=== PATIENT | male | born 1995 | race Caucasian/White ===

== ENCOUNTER 2019-10-11 17:19 | Emergency (ER) | payer BC ==
--- NOTE | 2019-10-11 17:35 | UC ---
Lower Extremity/Ankle HPI - HPI Summary HPI Summary: patient fell yesterday injuring the right foot, thinks the left middle toe is broken - History of Current Complaint Stated Complaint: LEFT FOOT INJURY Time Seen by Provider: 10/11/19 17:20 Hx Obtained From: Patient Onset/Duration: Sudden Onset, Lasting Days - 1 Severity Initially: Mild Severity Currently: Mild Aggravating Factor(s): Standing, Ambulation Alleviating Factor(s): Rest Able to Bear Weight: Yes PMH/Surg Hx/FS Hx/Imm Hx Previously Healthy: Yes - Family History Known Family History: Positive: Hypertension Review of Systems All Other Systems Reviewed And Are Negative: Yes Musculoskeletal: Positive: Arthralgia, Edema, Myalgia Physical Exam Triage Information Reviewed: Yes Appearance: Well-Appearing, Well-Nourished, Pain Distress Vital Signs Reviewed: Yes Eye Exam: Normal ENT Exam: Normal Dental Exam: Normal Neck exam: Normal Respiratory Exam: Normal Cardiovascular Exam: Normal Abdominal Exam: Normal Musculoskeletal: Positive: ROM Limited @ - in the 2dn and thridr left toes, Edema @ - mild and bruised Neurological Exam: Normal Psychological Exam: Normal Skin: Positive: Other - small scbbed area on the 2nd left toe Lower Extremity Course/Dx - Course Course Of Treatment: hx obtained, exam performed ,meds reviewed, xray obtained. - Differential Dx/Diagnosis Differential Diagnosis/HQI/PQRI: Contusion, Fracture (Closed), Sprain, Strain Provider Diagnosis: Fracture of proximal phalanx of toe of left foot Discharge ED - Sign-Out/Discharge Documenting (check all that apply): Patient Departure All imaging exams completed and their final reports reviewed: Yes - Discharge Plan Condition: Stable Disposition: HOME Patient Education Materials: Toe Fracture (ED) Referrals: Deonna Goncalves MD [Primary Care Provider] - Additional Instructions: John tape the toe fro support Ibuprofen as needed for pain warm water soaks daily follow up with othopedics if not improving. keep activity pain free. - Billing Disposition and Condition Condition: STABLE Disposition: Home
[2019-10-11 18:10] VITALS: BP 121/79
== END 2019-10-11 18:13 | disposition home or self-care (01) ==
LOC: UCCORT 17:19
DX: S92.512A Displaced fracture of proximal phalanx of left lesser toe(s), initial encounter for closed fracture (principal); W19.XXXA Unspecified fall, initial encounter; Y92.9 Unspecified place or not applicable
CPT/HCPCS: 99201; G0463